=== PATIENT | female | born 1965 | race Caucasian/White ===

== ENCOUNTER 2017-10-15 13:03 | Outpatient (CLI) | payer BC | END 2017-10-15 13:04 | disposition home or self-care (01) | LOC: BICMAMMO 13:03 | PROVIDERS: ATTEND Obstetrics & Gynecology | DX: Z12.31 Encounter for screening mammogram for malignant neoplasm of breast (principal); Z80.3 Family history of malignant neoplasm of breast; R92.1 Mammographic calcification found on diagnostic imaging of breast | CPT/HCPCS: 77063; 77067 ==

== ENCOUNTER 2018-10-15 10:36 | Day surgery (SDC) | payer BC ==
[2018-10-15] MEDS ORDERED: Ketorolac Tromethamine 30 MG/ML VIAL ONE (12:05)
[2018-10-15] MEDS ORDERED: Midazolam HCl 2 mg/2 ml Vial ONE ×2 (13:09→13:33)
[2018-10-15] MEDS ORDERED: Bupivacaine HCl 0.5%/Epinephrine 1:200,000/PF 30 ml Vial ONE (13:21)
[2018-10-15] MEDS ORDERED: Iothalamate Meglumine 60% 50 ML VIAL FS ONE (13:21)
[2018-10-15] MEDS ORDERED: Fentanyl 100 MCG/2 ML VIAL ONE ×2 (13:33→14:53)
--- NOTE | 2018-10-15 15:54 | HP ---
HISTORY OF PRESENT ILLNESS: Rachael Brambila is a 53-year-old female presenting to the [facility] Emergency Room for epigastric abdominal pain. She has had previous episodes of lesser severity. She has found at [facility] to have gallstones with normal bile duct caliber. After discussing with her, she wishes to proceed with laparoscopic cholecystectomy and cholangiograms. Bilirubin slightly elevated. She has been told by Dr. Jacobs, primary care physician, her liver functions have been elevated in the past as they check labs every 5 to 6 months. She is unaware of the fractionation of the liver function test. ALLERGIES: NONE. SOCIAL HISTORY: Tobacco, none. Alcohol, four beers a day. MEDICATIONS: 1. Effexor. 2. Latuda. 3. Clonazepam. 4. Metformin. She does report prediabetes. REVIEW OF SYSTEMS: [employer]-point noncontributory. She has moved from [place]. She lived here 11 years. 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 PHYSICAL EXAMINATION: VITAL SIGNS: 204 pounds, 67 inches tall, and BMI of 32. 116/78, 90 MAP, 98.3 degrees, and respiratory rate 24. HEAD, EARS, EYES, NOSE, AND THROAT: Unremarkable. Sclerae nonicteric. SKIN: Nonjaundiced. LUNGS: Clear to auscultation. CARDIAC: Regular rate and rhythm without murmur or gallop. ABDOMEN: Soft. Tenderness in right upper quadrant epigastric. EXTREMITIES: Unremarkable. LABORATORY DATA: Laboratories today from [facility]; white count 7, hemoglobin 13, hematocrit 39, and platelet count 186,000. Albumin 3.2, ALP 122, ALT 612, amylase 21, AST 1167, and bilirubin 2.4. CK-MB negative. Myoglobin negative. ASSESSMENT AND PLAN: 1. Cholecystitis and cholelithiasis. She may have some degree of alcohol hepatitis. We would plan laparoscopic video cholecystectomy and cholangiograms. I talked to her about regarding the risks of operation, laparoscopic cholecystectomy including infection, bleeding, reoperation, pancreatitis, and biliary injury and she consents. I have talked to her about possibility of endoscopic retrograde cholangiopancreatography. Risks of infection, bleeding, reoperation, pancreatitis, and bowel perforation, and she consents if indicated. 2. Alcohol abuse. 3. Depression and anxiety. Job ID: [id number]
[2018-10-15 16:03] LABS: HBCM Index 0.24 S/CO (0-0.79); Hep A IgM AB Non-Reactive (NonReactive); Hep A IgM S/CO 0.25 S/CO (0-0.79); Hep B Surf Ag Non-Reactive S/CO (NonReactive); Hep C IgG Ab Non-Reactive (NonReactive); Hep C Index 0.07 S/CO (0-0.79); Hepatitis B Core IgM Abs Non-Reactive (NonReactive)
[2018-10-15] MEDS ORDERED: HYDROcodone/Acetaminophen 5/325 mg Tablet ONE (16:23)
--- NOTE | 2018-10-15 16:27 | RAD ---
INTRAOPERATIVE CHOLANGIOGRAM 10/15/18 Single portable fluoroscopic spot image is performed. HISTORY: Intraoperative cholangiogram in the operating room. Single spot film demonstrates contrast injected into the cystic duct with filling of a normal appeari ng common duct and emptying into the duodenum without evidence for intraductal calculus. IMPRESSION: Unremarkable intraoperative cholangiogram as seen on a single portable fluoroscopic spot image. POS: OFF
--- NOTE | 2018-10-15 21:59 | OP ---
DATE OF PROCEDURE: 10/15/2018 PREOPERATIVE DIAGNOSES: Chronic and acute cholecystitis, cholelithiasis, large stone blocking the gallbladder outlet, elevated liver function tests, history of alcohol abuse. POSTOPERATIVE DIAGNOSES: Chronic and acute cholecystitis, cholelithiasis, large stone blocking the gallbladder outlet, elevated liver function tests, history of alcohol abuse with normal intraoperative cholangiogram using fluoroscopy. ANESTHESIA: General, local 0.5% Marcaine and epinephrine. PROCEDURE PERFORMED: Laparoscopic video cholecystectomy, normal cholangiograms. DESCRIPTION OF PROCEDURE: The patient was taken to the operating room where under general anesthesia, the abdomen was prepared with ChloraPrep and draped in routine fashion. Local anesthetic of 0.5% Marcaine with epinephrine, total volume, infiltrated in the skin and subcutaneous tissue about each port site. Infraumbilical incision was made, pneumoperitoneum to 15 mmHg was obtained with a Veress needle, replacing with a 5-port, video laparoscope was inserted. Right subxiphoid incision was made and 11 port was placed, right subcostal incision was made at midclavicular entrance line and the 5 port was placed. Fundus of the gallbladder reflected cephalad. Liver appeared to be fatty, but not cirrhotic. The infundibulum was reflected laterally. Cystic artery and duct were dissected free. Critical view was obtained. Cystic artery was doubly clipped proximally, cystic duct was singly clipped on the gallbladder side. An opening was made in the cystic duct and a cholangiocatheter was inserted. Cholangiogram was obtained using fluoroscopy, revealing free flow of contrast into the duodenum without filling defects in the common hepatic, common bile, or intrahepatic ducts. Cholangiocatheter was removed. Cystic duct stump was doubly clipped and divided. Gallbladder was dissected free from liver bed obtaining good hemostasis prior to division of the final peritoneal attachments. Gallbladder and contents were removed, submitted to Pathology. Good hemostasis ensured. Job ID: [id number]
== END 2018-10-15 16:50 | disposition home or self-care (01) ==
LOC: SDC 10:36
PROVIDERS: ATTEND Specialist
PROC: 0FT44ZZ Resection of Gallbladder, Percutaneous Endoscopic Approach (ICD-10-PCS; principal; 2018-10-15)
PROC: BF131ZZ Fluoroscopy of Gallbladder and Bile Ducts using Low Osmolar Contrast (ICD-10-PCS; principal; 2018-10-15)
DX: K80.12 Calculus of gallbladder with acute and chronic cholecystitis without obstruction (principal); K70.0 Alcoholic fatty liver; R94.5 Abnormal results of liver function studies; F10.10 Alcohol abuse, uncomplicated; F41.9 Anxiety disorder, unspecified; F32.9 Major depressive disorder, single episode, unspecified; R73.03 Prediabetes
CPT/HCPCS: 36415; 47532; 80074; 88304; J0131; J0670; J1610; J1885; J2250; J3010; Q9961

== ENCOUNTER 2018-11-24 11:30 | Outpatient (CLI) | payer BC ==
--- NOTE | 2018-11-24 12:52 | MMO ---
Bilateral MAMMO Bilat Screen [facility]. CLINICAL HISTORY: Patient is 53 years old and is seen for screening. The patient has no personal history of cancer. The patient has a history of right Excisional Biopsy in 1997. VIEWS: The views performed were: bilateral craniocaudal with tomosynthesis and bilateral mediolateral oblique with tomosynthesis. FILMS COMPARED: The present examination has been compared to prior imaging studies performed at [facility] on 10/07/2014, 10/11/2015, 10/14/2016 and 10/15/2017. MAMMOGRAM FINDINGS: There are scattered fibroglandular densities. Finding 1: There are stable benign appearing calcifications seen in both breasts. Finding 2: There is a stable intramammary lymph node seen in the right breast. There are no suspicious masses, suspicious calcifications, or new areas of architectural distortion. IMPRESSION: THERE IS NO MAMMOGRAPHIC EVIDENCE OF MALIGNANCY. A ROUTINE FOLLOW-UP MAMMOGRAM IN 1 YEAR IS RECOMMENDED. THE RESULTS OF THIS EXAM WERE SENT TO THE PATIENT. ACR BI-RADS Category 2 - Benign finding MAMMOGRAPHY NOTE: 1. A negative mammogram report should not delay a biopsy if a dominant of clinically suspicious mass is present. 2. Approximately 10% to 15% of breast cancers are not detected by mammography. 3. Adenosis and dense breasts may obscure an underlying neoplasm. Reported by: ROZINA WHITESIDE MD Electonically Signed: [id number]
== END 2018-11-24 11:31 | disposition home or self-care (01) ==
LOC: BICMAMMO 11:30
PROVIDERS: ATTEND Obstetrics & Gynecology
DX: Z12.31 Encounter for screening mammogram for malignant neoplasm of breast (principal)
CPT/HCPCS: 77063; 77067

== ENCOUNTER 2019-11-26 11:29 | Outpatient (CLI) | payer BC ==
--- NOTE | 2019-11-26 13:00 | MMO ---
Bilateral MAMMO Bilat Screen [facility]. CLINICAL HISTORY: Patient is 54 years old and is seen for screening. The patient has the following family history of breast cancer: sister, at age 52, malignant (generic). The patient has no personal history of cancer. The patient has a history of right Excisional Biopsy in 1997. VIEWS: The views performed were: bilateral craniocaudal with tomosynthesis and bilateral mediolateral oblique with tomosynthesis. FILMS COMPARED: The present examination has been compared to prior imaging studies performed at [facility] on 10/11/2015, 10/14/2016, 10/15/2017 and 11/24/2018. This study has been interpreted with the assistance of computer-aided detection. MAMMOGRAM FINDINGS: There are scattered fibroglandular densities. There are stable benign appearing calcifications seen in both breasts. There are no suspicious masses, suspicious calcifications, or new areas of architectural distortion. IMPRESSION: THERE IS NO MAMMOGRAPHIC EVIDENCE OF MALIGNANCY. A ROUTINE FOLLOW-UP MAMMOGRAM IN 1 YEAR IS RECOMMENDED. THE RESULTS OF THIS EXAM WERE SENT TO THE PATIENT. ACR BI-RADS Category 2 - Benign finding MAMMOGRAPHY NOTE: 1. A negative mammogram report should not delay a biopsy if a dominant of clinically suspicious mass is present. 2. Approximately 10% to 15% of breast cancers are not detected by mammography. 3. Adenosis and dense breasts may obscure an underlying neoplasm. Reported by: JOSE MIGUEL GUADALUPE MD Electonically Signed: [id number]
== END 2019-11-26 11:30 | disposition home or self-care (01) ==
LOC: BICMAMMO 11:29
PROVIDERS: ATTEND Obstetrics & Gynecology
DX: Z12.31 Encounter for screening mammogram for malignant neoplasm of breast (principal); Z80.3 Family history of malignant neoplasm of breast
CPT/HCPCS: 77063; 77067

== ENCOUNTER 2020-11-30 11:55 | Outpatient (CLI) | payer BC | END 2020-11-30 11:56 | disposition home or self-care (01) | LOC: BICMAMMO 11:55 | PROVIDERS: ATTEND Obstetrics & Gynecology | DX: Z12.31 Encounter for screening mammogram for malignant neoplasm of breast (principal); Z80.3 Family history of malignant neoplasm of breast | CPT/HCPCS: 77063; 77067 ==

== ENCOUNTER 2021-12-03 07:58 | Outpatient (CLI) | payer BC | END 2021-12-03 07:59 | disposition home or self-care (01) | LOC: BICMAMMO 07:58 | PROVIDERS: ATTEND Obstetrics & Gynecology | DX: Z12.31 Encounter for screening mammogram for malignant neoplasm of breast (principal); Z80.3 Family history of malignant neoplasm of breast; Z91.89 Other specified personal risk factors, not elsewhere classified | CPT/HCPCS: 77063; 77067 ==

== ENCOUNTER 2022-12-24 08:26 | Outpatient (CLI) | payer BC | END 2022-12-24 08:27 | disposition home or self-care (01) | LOC: BICMAMMO 08:26 | PROVIDERS: ATTEND Student in an Organized Health Care Education/Training Program | DX: Z12.31 Encounter for screening mammogram for malignant neoplasm of breast (principal); Z80.3 Family history of malignant neoplasm of breast; Z91.89 Other specified personal risk factors, not elsewhere classified | CPT/HCPCS: 77063; 77067 ==